=== PATIENT | female | born 1965 | race African-American/Black ===

== ENCOUNTER 2019-07-22 12:48 | Outpatient (CLI) | payer MEDICAID ==
[~2019-07-22] VITALS: Ht 154.9 cm; Wt 83.0 kg
[2019-07-22 16:00] VITALS: BP 152/81
[2019-07-22] MEDS ORDERED: ALBUTEROL SULF8.5 GM INH (16:00)
[2019-07-22] MEDS ORDERED: IBGARD90 MG PO (16:00)
[2019-07-22] MEDS ORDERED: OMEGA 3 1,0001 EACH PO (16:00)
[2019-07-22] MEDS ORDERED: FLEET ENEMA133 ML RECTAL (16:00)
[2019-07-22] MEDS ORDERED: BISACODYL5 MG ORAL (16:00)
[2019-07-22] MEDS ORDERED: PRILOSEC OTC20 MG ORAL (16:00)
--- NOTE | 2019-07-22 18:15 | Consultation ---
DATE OF CONSULTATION: 07/22/2019 CONSULTING PHYSICIAN: Mike Jasmine M.D. CHIEF COMPLAINT: Constipation, GERD, abdominal pain, rectal bleeding. HISTORY OF PRESENT ILLNESS: This is a very pleasant 53-year-old female who was referred to us for screening colonoscopy. The patient also been having complaint of constipation, GERD, and needs also endoscopy. PAST MEDICAL HISTORY: 1. Asthma. 2. GERD. 3. IBS. 4. Hemorrhoids. PAST SURGICAL HISTORY: Cosmetic surgeries. MEDICATIONS: She is on albuterol, Prilosec, omega 3, IBgard, p.r.n. enema. FAMILY HISTORY: Father had dementia. SOCIAL HISTORY: The patient drinks socially. Denies any tobacco or IV drug abuse. ALLERGIES: No known drug allergy. REVIEW OF SYSTEMS: Positive for GERD, dysphagia, chest pain, constipation, rectal bleeding, and bloating. PHYSICAL EXAMINATION: VITAL SIGNS: Temperature 97.7, blood pressure is 150/81, pulse is , respirations 20. HEENT: Normocephalic and atraumatic. Sclerae anicteric. NECK: Supple. No evidence of lymphadenopathy. CARDIOVASCULAR: Regular rate and rhythm. Plus S1 and S2. No obvious murmur. LUNGS: Clear to auscultation bilaterally. ABDOMEN: Positive bowel sounds. Soft and nontender. No rebound. No guarding. No peritoneal sign. EXTREMITIES: No cyanosis. No clubbing. No edema. ASSESSMENT AND PLAN: This is a 53-year-old female, need screening colonoscopy. Complained of constipation . The patient also had chronic GERD. The patient was otherwise to continue on Prilosec and we will also schedule for endoscopy when the authorization is obtained. The patient was informed of the risks and benefits of the procedure. Prep was given to her and explained to her. We will schedule her when the authorization is obtained. Mike Jasmine M.D. DR: ABDULLAHI JOB#: [id number] CC:
== END 2019-07-22 14:48 | disposition home or self-care (01) ==
LOC: PAN 12:48
DX: K59.00 Constipation, unspecified (principal); K21.9 Gastro-esophageal reflux disease without esophagitis; R10.9 Unspecified abdominal pain; K62.5 Hemorrhage of anus and rectum; Z79.899 Other long term (current) drug therapy; R13.10 Dysphagia, unspecified; R07.9 Chest pain, unspecified; R14.0 Abdominal distension (gaseous)

== ENCOUNTER → 2019-12-12 | Emergency (ER) | payer MEDICAID ==
[~2019-12-12] VITALS: Ht 154.9 cm; Wt 79.4 kg
[~2019-12-12] MED LIST: ALBUTEROL SULF8.5 GM INH; BISACODYL5 MG ORAL; FLEET ENEMA133 ML RECTAL; IBGARD90 MG PO; LIDODERM700 M1 TOPIC; Methocarbamol 750mg tab ORAL ONE; OMEGA 3 1,0001 EACH PO; PRILOSEC OTC20 MG ORAL; ROBAXIN-500MG ORAL; TYLENOL EXTRA500 MG ORAL
[2019-12-12 17:23] VITALS: BP 158/81
--- NOTE | 2019-12-12 17:30 | NUR ---
ED Nurse Note: patient walked into ED from home c/o left arm pain for 2 months, patient reports "for a while I can't remember exactly." patient denies any injury. patient is alert awake x4 ambulatory, breathing unlabored and even, speaking in full sentences. patient provided with hospital gown. patient also c/o chest pain.
--- NOTE | 2019-12-12 17:45 | NUR ---
ED Nurse Note: cxr taken at bedside.
--- NOTE | 2019-12-12 18:32 | Diagnostic Imaging Report ---
EXAM: XR Chest, 1 View CLINICAL HISTORY: PAIN TECHNIQUE: Frontal view of the chest. COMPARISON: No relevant prior studies available. FINDINGS: Lungs: Unremarkable. Pleural space: Unremarkable. Heart: Unremarkable. Mediastinum: Unremarkable. Bones/joints: Unremarkable. IMPRESSION: Normal chest x-ray.
--- NOTE | 2019-12-12 18:40 | Diagnostic Imaging Report ---
EXAM: XR Left Shoulder Complete, 2 or More Views CLINICAL HISTORY: PAIN TECHNIQUE: Two or more views of the left shoulder. COMPARISON: No relevant prior studies available. FINDINGS: Bones/joints: Unremarkable. No acute fracture. No dislocation. Soft tissues: Unremarkable. IMPRESSION: Normal left shoulder x-rays.
--- NOTE | 2019-12-12 19:10 | NUR ---
HAND-OFF: Report given to Margot BECERRIL.
[2019-12-12 19:13] LABS: HEMATOCRIT 38.2 % (37.0-47.0); HEMOGLOBIN 12.9 G/DL (12.0-16.0); MEAN CORPUSCULAR VOLUME 78 FL (80-99); PLATELET COUNT 277 K/UL (150-450); RED BLOOD COUNT 4.87 M/UL (4.20-5.40); RED CELL DISTRIBUTION WIDTH 11.9 % (11.6-14.8); WHITE BLOOD COUNT 6.1 K/UL (4.8-10.8)
[2019-12-12 19:22] LABS: ANION GAP 13 mmol/L (5-15); BLOOD UREA NITROGEN 14 mg/dL (7-18); CALCIUM 9.4 MG/DL (8.5-10.1); CARBON DIOXIDE 26 MMOL/L (21-32); CHLORIDE 105 MMOL/L (98-107); CREATININE 0.8 MG/DL (0.55-1.30); SODIUM 144 MMOL/L (136-145)
[2019-12-12 19:34] LABS: ALANINE AMINOTRANSFERASE 28 U/L (12-78); ALBUMIN 3.8 G/DL (3.4-5.0); ALBUMIN/GLOBULIN RATIO 0.9 (1.0-2.7); ALKALINE PHOSPHATASE 74 U/L (46-116); ASPARTATE AMINO TRANSFERASE 21 U/L (15-37); BILIRUBIN,TOTAL 0.4 MG/DL (0.2-1.0)
--- NOTE | 2019-12-12 19:43 | Emergency Room Report ---
History of Present Illness General Chief Complaint: Pain Source: Medical Record (Mich Zapata) Present Illness HPI 54-year-old female with no significant past medical history here complaining of few months of left shoulder pain without any fall or injury. Also complains of intermittent chest pain without radiation. Patient appears to have elevated blood pressure upon arrival however, denies any shortness of breath, blurry vision, headache and dizziness. Reports that she has been told before that she has high blood pressure primary doctor in many months. Denies tobacco smoking alcohol intake. Reports he cannot take any ibuprofen due to gastritis. Denies tingling and numbness. Reports pain happens to be 10 out of 10 at times with radiation to left arm. Patient has full range of motion (Mich Zapata) Allergies: Coded Allergies: No Known Allergies (Unverified , 07/22/19) Patient History Past Medical History: see triage record Past Surgical History: none Pertinent Family History: none Last Menstrual Period: menopause Now: No Immunizations: UTD Reviewed Nursing Documentation: PMH: Agreed; PSxH: Agreed (Mich Zapata) Nursing Documentation-PMH Past Medical History: No History, Except For Hx Cardiac Problems: No Hx Asthma: Yes Hx Cancer: No Hx Gastrointestinal Problems: Yes Hx Neurological Problems: No (Mich Zapata) Review of Systems All Other Systems: negative except mentioned in HPI (Mich Zapata) Physical Exam Vital Signs Date Time Temp Pulse Resp B/P (MAP) Pulse Ox O2 Delivery O2 Flow Rate FiO2 12/12/19 17:23 98.2 60 18 158/81 (106) 99 Room Air Sp02 EP Interpretation: reviewed, normal General Appearance: no apparent distress, alert, GCS 15, non-toxic Head: normocephalic, atraumatic Eyes: bilateral eye normal inspection, bilateral eye PERRL ENT: hearing grossly normal, normal pharynx, no angioedema, normal voice Neck: full range of motion, supple, supple/symm/no masses Respiratory: chest non-tender, lungs clear, normal breath sounds, no rhonchi, no retraction, no wheezing, speaking full sentences Cardiovascular #1: regular rate, rhythm, no edema, no murmur, normal capillary refill Cardiovascular #2: 2+ carotid (R), 2+ carotid (L), 2+ radial (R), 2+ radial (L) Gastrointestinal: normal bowel sounds, non tender, soft, non-distended, no guarding, no rebound Genitourinary: no CVA tenderness Musculoskeletal: normal inspection, back normal, no calf tenderness, pelvis stable, non-tender, other - No impingement sign noted Neurologic: alert, motor strength/tone normal, oriented x3, sensory intact, responsive, speech normal Psychiatric: judgement/insight normal, memory normal, mood/affect normal, no suicidal/homicidal ideation Skin: no rash, palpation normal Lymphatic: no adenopathy (Mich Zapata) Medical Decision Making PA Attestation All diagnoses and treatment plans were reviewed and discussed with my supervising physician Dr. Mcmahan (Mich Zapata) Diagnostic Impression: Primary Impression: Left shoulder tendonitis Additional Impression: Chest pain, unspecified ER Course 54-year-old female with no significant past medical history here complaining of few months of left shoulder pain without any fall or injury. Also complains of intermittent chest pain without radiation. Patient appears to have elevated blood pressure upon arrival however, denies any shortness of breath, blurry vision, headache and dizziness. Reports that she has been told before that she has high blood pressure primary doctor in many months. Denies tobacco smoking alcohol intake. Reports he cannot take any ibuprofen due to gastritis. Denies tingling and numbness. Reports pain happens to be 10 out of 10 at times with radiation to left arm. Patient has full range of motion Ddx considered but are not limited to : Left shoulder tendinitis, sprain versus strain versus fracture versus arthritis, PR, chest wall pain, unspecified chest pain, COPD exacerbation, gastritis Vital signs: are WNL, pt. is afebrile H&PE are most consistent with: Unspecified chest pain, left shoulder tendinitis ORDERS: Chest x-ray, EKG, CBC, CMP, troponin, BNP, shoulder x-ray, Tylenol, Robaxin, lidocaine patch ED INTERVENTIONS: Tylenol as patient refused any Toradol, Robaxin DISCHARGE: At this time pt. is stable for d/c to home. Will provide printed patient care instructions, and any necessary prescriptions. Care plan and follow up instructions have been discussed with the patient prior to discharge. Patient to follow primary care doctor, take medication as directed, blood pressure appears to continuously be elevated blood pressure medication to be started by primary care physician. If worsening symptoms return to emergency room at this time other acute causes of intermittent chest pain have been ruled out. Also patient to follow-up with superior court clerk. (Mich Zapata) EKG Diagnostic Results Rate: bradycardiac Rhythm: other - Bradycardia ST Segments: no acute changes Other Impression No acute ST changes (Mich Zapata) Chest X-Ray Diagnostic Results Chest X-Ray Diagnostic Results : Chest X-Ray Ordered: Yes # of Views/Limited/Complete: 1 View Indication: Shortness of Breath EP Interpretation: Yes PA Xray: Interpretation reviewed, by supervising MD, and agrees with findings. Interpretation: no consolidation, no effusion, no pneumothorax, no acute cardiopulmonary disease Impression: No acute disease Electronically Signed by: Mich Willis PA-C (Mich Zapata) Chest X-Ray Diagnostic Results : Electronically Signed by: P A documentation of Xray reviewed by me and is accurate, Dejon Mcmahan MD (Dejon Mcmahan MD) Other X-Ray Diagnostic Results Other X-Ray Diagnostic Results : Electronically Signed by: P A documentation of Xray reviewed by me and is accurate, Dejon Mcmahan MD (Dejon Mcmahan MD) Last Vital Signs Date Time Temp Pulse Resp B/P (MAP) Pulse Ox O2 Delivery O2 Flow Rate FiO2 12/12/19 18:56 98.2 12/12/19 17:23 60 18 158/81 99 Room Air Status: improved (Mich Zapata) Disposition: HOME, SELF-CARE Condition: Stable Scripts Lidocaine Patch* (Lidoderm Patch*) 1 Each Adh..patch 1 PATCH TOPIC DAILY, #30 PATCH Patch(es) may remain in place for up to 12 hours in any 24-hour period. Prov: Mich Zapata 12/12/19 Acetaminophen* (TYLENOL EXTRA STRENGTH*) 500 Mg Tablet 500 MG ORAL Q8H PRN for Prn Headache/Temp > 101, #30 TAB 0 Refills Prov: Mich Zapata 12/12/19 Methocarbamol* (ROBAXIN-500*) 500 Mg Tablet 500 MG ORAL TID PRN for For Pain, #15 TAB 0 Refills Prov: Mich Zapata 12/12/19 Referrals: [facility],REFERRING (PCP) Patient Instructions: Nonspecific Chest Pain, Shoulder Sprain Additional Instructions: Take medication as directed, follow-up with your primary care doctor, avoid strenuous physical activity, if worsening symptoms return to the emergency room Mich Zapata Dec 12, 2019 19:43 Dejon Mcmahan MD Dec 14, 2019 05:29
== END | disposition home or self-care (01) ==
LOC: EMR 17:36
DX: M77.9 Enthesopathy, unspecified (principal); R07.9 Chest pain, unspecified; R00.1 Bradycardia, unspecified
CPT/HCPCS: 36415; 71045; 73030; 80053; 83880; 84484; 85007; 85025; 93005; Z7502; 99284